=== PATIENT | male | born 1995 | race Caucasian/White ===

== ENCOUNTER 2020-01-09 15:43 | Outpatient (REF) | payer MEDICAID, SELFPAY ==
[2020-01-13 22:12] LABS: SARS-CoV-2 RNA Undetected (Undetected); SARS-CoV-2 Specimen Source Nasopharynx
== END 2020-01-09 16:03 ==
LOC: NCHCN 15:43
PROVIDERS: PCP Nurse Practitioner Family; Visit Provider Nurse Practitioner Family
DX: J02.9 Acute pharyngitis, unspecified (principal); Z11.59 Encounter for screening for other viral diseases
CPT/HCPCS: U0003

== ENCOUNTER 2021-10-13 19:15 | Outpatient (REF) | payer MEDICAID, SELFPAY ==
[2021-10-13 16:53] LABS: Hemoglobin A1C 5.4 % (<5.7)
[2021-10-13 17:16] LABS: Calculated LDL 120 mg/dL (<100); Cholesterol 178 mg/dL (<200); HDL Cholesterol 39 mg/dL (40-60); Triglyceride 98 mg/dL (<150)
[2021-10-14 10:01] LABS: HIV-1/2 Ag & Ab Screen Negative (Negative)
[2021-10-14 10:10] LABS: Hepatitis C Ab w Rflx HCV PCR Negative (Negative)
== END 2021-10-13 19:16 | disposition home or self-care (01) ==
LOC: NCHCN 19:15
PROVIDERS: PCP Nurse Practitioner Family; Visit Provider Nurse Practitioner Family
DX: E66.01 Morbid (severe) obesity due to excess calories (principal); Z13.1 Encounter for screening for diabetes mellitus; Z11.4 Encounter for screening for human immunodeficiency virus [HIV]; Z11.59 Encounter for screening for other viral diseases; Z13.220 Encounter for screening for lipoid disorders; Z00.00 Encounter for general adult medical examination without abnormal findings
CPT/HCPCS: 80061; 86803; 87389; 83036

== ENCOUNTER → 2022-07-08 15:43 | Outpatient (CLI) | payer MEDICAID, SELFPAY ==
--- NOTE | 2022-07-08 | DI.RAD_ITS ---
Exam(s) XR WRIST LT COMP NAVICULAR EXAM: XR WRIST LT COMP NAVICULAR CLINICAL HISTORY: LT WRIST PAIN, M25.532, S/P CATCHING HIMSELF, ULNAR SIDE PAIN, ? FX. TECHNIQUE: 2D digital imaging was performed of the left wrist. Four images were obtained. Scaphoid , PA, oblique and lateral views were obtained. COMPARISON: No exams were available for comparison FINDINGS: BONES: No acute fracture is present. No bony destructive lesion is seen. JOINTS: The carpal bones are normally aligned. SOFT TISSUE: Normal. IMPRESSION: Unremarkable radiographs of the left wrist. DATA REPOSITORY: RADIATION DOSE DELIVERED:
== END ==
PROVIDERS: PCP Nurse Practitioner Family; Visit Provider Physician Assistant Medical
DX: M25.532 Pain in left wrist (principal); Z91.81 History of falling
CPT/HCPCS: 73110

== ENCOUNTER 2025-03-28 16:19 | Outpatient (REF) | payer MEDICAID, SELFPAY ==
[2025-03-28 15:50] LABS: Hemoglobin A1C 5.4 % (<5.7)
[2025-03-28 16:15] LABS: ALT 49 U/L (16-63); AST 21 U/L (15-37); Albumin 3.8 g/dL (3.4-5.0); Alkaline Phosphatase 74 U/L (46-116); Anion Gap 8.6 mmol/L (3-11); BUN 13 mg/dL (7-18); Bilirubin, Total 1.5 mg/dL (0.2-1.0); CO2 31.4 mmol/L (21.0-32.0); Calcium 9.3 mg/dL (8.5-10.1); Calculated LDL 135 mg/dL (<100); Chloride 103 mmol/L (98-107); Cholesterol 205 mg/dL (<200); Estimated GFR 122.86 (mL/min/1.73m2); Glucose 97 mg/dL (74-106); HDL Cholesterol 42 mg/dL (>or=40); Potassium 4.1 mmol/L (3.5-5.1); Sodium 143 mmol/L (136-145); Total Protein 6.6 g/dL (6.4-8.2); Triglyceride 140 mg/dL (<150)
== END 2025-03-28 16:20 | disposition home or self-care (01) ==
LOC: NCHCN 16:19
PROVIDERS: PCP Physician Assistant; Visit Provider Physician Assistant
DX: E78.5 Hyperlipidemia, unspecified (principal); Z13.1 Encounter for screening for diabetes mellitus
CPT/HCPCS: 80053; 80061; 83036